=== PATIENT | male | born 1980 | race Caucasian/White ===

== ENCOUNTER → 2018-11-22 15:42 | Outpatient (CLI) | payer BC, SELFPAY ==
--- NOTE | 2018-11-22 15:46 | MR_ITS ---
MR head/brain wo con Ordering Physician: Zandra Du MD Patient Age: 38 years: Male HISTORY: ITS.REASON: central vs peripheral etiology DISI on and off for 10 years gotten worse recently. Also sharp pains head sometimes come and go. Last up to 20 seconds. Pain symptoms past 4 months. TECHNIQUE: MRI the brain without contrast Noncontrast Multiplanar FLAIR, T1, T2 weighted images along with axial diffusion/ADC imaging performed on 1.5 T. Siemens, MRI. COMPARISON :No relevant studies FINDINGS the brain demonstrates normal anatomy. Normal cranial cervical junction and sella ventricles and basal cisterns appear normal and symmetric. No extra-axial collections Diffusion images reveal no recent infarct or ischemia. There are no extra-axial nor subdural collections or findings. Survey images through the [place] on today's study is unremarkable No white matter lesions on the sensitive FLAIR images in both the coronal and axial planes. The posterior fossa appears normal. CP angles are clear. Cranial nerve VII and VIII appears satisfactory as a past to the respective right and left IAC. Mastoid air cells are clear with no significant findings. . Orbits unremarkable. Frontal, sphenoid, ethmoid sinuses are clear. Right maxillary sinus clear. Scant less than 2 mm mucosal thickening floor right maxillary sinus. There is a dome shaped density measured 1.5 cm of the floor the anterior left maxillary sinus. Likely retention cyst Scalp and skull appear satisfactory. Dural venous sinuses unremarkable WNL There is mild early cervical spondylosis features developing at upper C-spine. ... IMPRESSION ...... normal MRI of the brain. No significant findings.. Normal anatomy. No white matter lesions. Regarding dizziness: CP angles, IACs, mastoids, posterior fossa unremarkable on this routine survey MRI brain
== END ==
PROVIDERS: Visit Provider Specialist
DX: R42 Dizziness and giddiness (principal); R51 Headache; Z86.79 Personal history of other diseases of the circulatory system
CPT/HCPCS: 70551

== ENCOUNTER 2018-11-22 16:54 | Outpatient (RCR) | payer BC, SELFPAY ==
--- NOTE | 2018-11-22 18:16 | HMH.PTOPEV ---
PT Outpatient Evaluation Rehab PT Outpatient Evaluation Start: 11/22/18 17:04 Freq: Status: Active Protocol: Document 11/22/18 17:05 KRISTENJOSHUA (Rec: 11/22/18 18:16 VIKI [id number]) Electronically Signed By Nilo Patel, SHY 11/22/18 17:05 Outpatient Therapy Subjective History Subjective History This is the intial Physical Therapy evaluation for Ethan Valdez. Pt is a 34 y/o male referred to PT due to c/o dizzyness and light headedness . Pt reports S&S began ~ 12 years ago. Pt reports he was diagnosed w/ A-fib and had heart ablation. Pt reports A- fib was controlled but he has continued to have c/o dizzyness. Pt reports ENT says no vertigo and was referred to Neurologist. Pt reports Driving makes his symprtoms act up, and sometimes heights. Chief Complaint Other Symptom Type Other Symptoms Relieved By Nothing Prior Functional Limitations None Current Functional Limitations Driving,Recreation Activity Symptom Description Intermittent Level of pain today (0-10) 0 Pain scale - at its best (0-10) 0 Pain scale - at its worst (0-10) 0 Balance Eval Subjective Hx of Complaint Comment see above Chief Complaint vertigo No Did you feel dizzy, unsteady or faint? Yes Activity at onset unknown Prior Functional Limitations Prior Functional [place] complete independence Current Functional Limitations Comment driving Hx of Falls Hx Falls No Gait/Posture Asssessment General Gait Observation No Deviations/Normal Assistive Devices None / NA Level of Transfer Assist Independent Hip Observation in Gait Swing No Deviation Hip Observation in Gait Stance No Deviation Ankle/Foot Observation in Gait Swing No Deviation Ankle/Foot Observation in Gait Stance No Deviation Hip Posture Standing Position (L) Neutral,(R) Neutral Body Alignment Posture Relaxed Nystagmus Nystagmus Presence None Timed Up and Go Test 1. Is the Timed Up and Go test result > no or = to 12 seconds? 3. Is the Timed Up and Go Test result < yes 12 seconds? Oculomotor Gaze Oculomotor Gaze Nml: Vergence Smooth Pursuit
== END 2018-11-22 16:58 | disposition home or self-care (01) ==
LOC: PT 16:54
PROVIDERS: Visit Provider Specialist
DX: R42 Dizziness and giddiness (principal); R51 Headache; Z86.79 Personal history of other diseases of the circulatory system
CPT/HCPCS: 97110; 97163

== ENCOUNTER → 2018-12-09 20:28 | Outpatient (CLI) | payer BC, SELFPAY | PROVIDERS: Visit Provider Specialist | DX: G47.30 Sleep apnea, unspecified (principal); R40.0 Somnolence; R06.83 Snoring; R51 Headache; R42 Dizziness and giddiness; Z86.79 Personal history of other diseases of the circulatory system | CPT/HCPCS: 95810 ==

== ENCOUNTER → 2019-08-19 16:40 | Outpatient (CLI) | payer BC, SELFPAY ==
--- NOTE | 2019-08-19 16:44 | XR_ITS ---
PROCEDURE: XR LUMBAR SPINE 6V W BENDING CLINICAL INDICATION: low back pain for several years COMPARISON: No exams were available for comparison FINDINGS: There is normal curvature and alignment. All lumbar vertebrae appear intact and disc spaces are well maintained throughout. There is no pars defect. Flexion and extension views show normal range of motion. There are mild hypertrophic facet changes at the L3-4, L4-5 and L5-S1 levels. The SI joints are normal. IMPRESSION: Mild hypertrophic facet changes lower lumbar spine otherwise essentially unremarkable study Dictated by: Dr. Keith Mireles MD 08/20/2019 11:[address] Keith Mireles MD in [place] 08/20/2019 11:15
== END ==
PROVIDERS: PCP Nurse Practitioner Family; Visit Provider Nurse Practitioner Family
DX: M54.9 Dorsalgia, unspecified (principal)
CPT/HCPCS: 72114

== ENCOUNTER → 2019-09-01 15:22 | Outpatient (CLI) | payer BC, SELFPAY ==
--- NOTE | 2019-09-01 15:23 | MR_ITS ---
PROCEDURE: MR LUMBAR SPINE WO CON CLINICAL INDICATION: low back pain Low back pain with bilateral hip pain XR LUMBAR SPINE 6V W BENDING from 08/19/2019 TECHNIQUE: Standard multiplanar multiecho sequences are performed without contrast. 3-D MIP and myelographic images are also rendered and reviewed FINDINGS: There is normal alignment. The spinal cord ends at the L1 level. L1-L2 L2-L3 and L3-L4 have an unremarkable appearance. L4-5: Minimal bulging disc slightly eccentric toward the right. There is some mild facet ligamentum hypertrophy with mild right lateral recess narrowing. L5-S1: Minimal bulging disc IMPRESSION: 1. Minimal bulging disc L4-5 and L5-S1 with mild right lateral recess narrowing at L4-5 due to the bulging disc which is slightly eccentric toward the right 2. No canal stenosis or extruded herniated disc Dictated by: Srikanth Navarrete MD 09/02/2019 18:40 Electronically signed by Srikanth Navarrete MD in [place] 09/02/2019 18:40
== END ==
PROVIDERS: PCP Nurse Practitioner Family; Visit Provider Nurse Practitioner Family
DX: M54.9 Dorsalgia, unspecified (principal)
CPT/HCPCS: 72148; 76376

== ENCOUNTER 2019-09-27 14:30 | Outpatient (RCR) | payer BC, SELFPAY ==
--- NOTE | 2019-09-12 15:29 | HMH.PTOPEV ---
PT Outpatient Evaluation Rehab PT Outpatient Evaluation Start: 09/12/19 14:25 Freq: Status: Active Protocol: Document 09/12/19 15:18 OTTO (Rec: 09/12/19 15:29 PHORNE [id number]) Electronically Signed By Link Osorio, PT 09/12/19 15:18 Outpatient Therapy Subjective History Subjective History Pt is 39 yowm who presents with long hx of LBP worse x ~ 1 yr. He reports constant dull ache with intermittent sharp pains in the low back, no c/o radicular symptoms in the legs . He reports pain is worse with forward bending and lifting. MRI shows L4-5 and L5 -S1 lumbar disc bulges. Chief Complaint Pain Symptom Type Ache,Sharp Symptoms Relieved By Rest/Positioning Symptoms Aggravated By Lifting Prior Functional Limitations None Current Functional Limitations Lifting Symptom Description Constant but Variable Level of pain today (0-10) 3 Pain scale - at its worst (0-10) 8 Lumbopelvic Eval Posture Thoracic Spine Posture Standing Position Neutral Lumbar Spine Posture Standing Position Neutral Range of Motion Lumbar Spine Active Flexion Range of 0-65 Motion (degrees) Lumbar Spine Active Extension Range of 0-25 Motion (degrees) Left Lumbar Spine Lateral Flexion Active 0-15 Range of Motion (degrees) Right Lumbar Spine Lateral Flexion 0-20 Active Range of Motion (degrees) Manual Muscle Test Bilateral Knee Extension Strength Grade 5 Normal Knee Flexion Strength Grade 5 Normal Hip Flexion Strength Grade 5 Normal Hip Abduction Strength Grade 5 Normal Hip Adduction Strength Grade 5 Normal Hip External Rotation Strength Grade 5 Normal Hip Internal Rotation Strength Grade 5 Normal Hip Extension Strength Grade 5 Normal Gluteus [place] Strength Grade 5 Normal Extensor Hallucis Longus Strength Grade 5 Normal Ankle Dorsiflexion Strength Grade 5 Normal Gastronemius/Soleus Strength Grade 5 Normal DTR Rt Patellar 2+ Lt Patellar 2+ Rt Gastroc/Soleus 2+ Lt Gastroc/Soleus 2+ Special Tests Forward Bending Test- Standing Negative Left,Negative Right Hip Scouring (Quadrant) Test Negative Left,Negative Right Hip Bhavesh (MAX) Test Negative Left,Negative Right Sciatic Nerve Tension Test Negative Left,Negative Right Unilateral Straight Leg Raise (Lasegue) Negative Left,Negative Right Test Lumbar Long [place] Distraction Test/Manual Positive Traction Outpatient Therapy Assessme
== END 2019-09-27 15:00 | disposition home or self-care (01) ==
LOC: PT 14:30
PROVIDERS: PCP Nurse Practitioner Family; Visit Provider Nurse Practitioner Family
DX: M51.26 Other intervertebral disc displacement, lumbar region (principal)
CPT/HCPCS: 97010; 97012; 97014; 97035; 97110; 97140; 97163; G0283

== ENCOUNTER → 2022-11-20 23:23 | Outpatient (CLI) | payer BC, SELFPAY ==
[2022-11-20 17:53] LABS: Basophils % 0.5 % (0.1-2.0); Eosinophils # 0.1 K/mm3 (0.0-0.4); Eosinophils % 1.8 % (0.1-12.0); Hematocrit 43.7 % (42.0-52.0); Hemoglobin 15.6 g/dL (14.1-18.0); Lymphocytes # 2.4 K/mm3 (0.7-4.5); Lymphocytes % 39.8 % (10-50); Mean Corpuscular HGB Conc 35.6 g/dL (31.8-35.4); Mean Corpuscular Hemoglobin 32.1 pg (27.0-31.2); Mean Corpuscular Volume 90.2 fl (80-94); Mean Platelet Volume 7.6 fl (7.4-10.4); Monocytes # 0.2 K/mm3 (0.1-1.0); Monocytes % 3.8 % (1.7-9.3); Neutrophils # 3.2 K/mm3 (1.8-7.8); Neutrophils % 54.2 % (37.0-80.0); Platelet Count 204 K/mm3 (142-424); Red Blood Count 4.84 M/mm3 (4.60-6.20); Red Cell Distribution Width 13.1 % (11.5-17.5); White Blood Count 5.9 K/mm3 (4.8-10.8)
[2022-11-20 18:18] LABS: Alanine Aminotransferase 60 U/L (12-78); Albumin Level 4.9 g/dl (3.5-5.0); Albumin/Globulin Ratio 1.6 (1.1-1.8); Alkaline Phosphatase 71 U/L (38-126); Aspartate Amino Transferase 42 U/L (17-59); Bilirubin,Total 0.9 mg/dl (0.2-1.3); Blood Urea Nitrogen 17 mg/dl (9-20); Calcium 9.2 mg/dl (8.4-10.2); Carbon Dioxide 25 mmol/L (22.0-30.0); Chloride 103 mmol/L (98-107); Chol/HDL Ratio 7.1 (1-3.5); Cholesterol 234 mg/dl (140-200); Estimated Glomerular Filt Rate 92 ml/min (>60); GFR (African American) 111 ML/MIN (>60); Glucose 102 mg/dl (74-100); HDL Cholesterol 33 mg/dl (40-60); Sodium 140 mmol/L (136-145); Total Protein,Serum 7.9 g/dl (6.3-8.2)
[2022-11-20 18:28] LABS: Triglycerides 815 mg/dl (30-150)
[2022-11-24 12:27] LABS: Free Thyroxine Index 1.7 ug/dL (5.93-13.13); T4 (Thyroxine) 5.2 ug/dl (5.53-11.0); Triiodothryronine (T3) Uptake 32 % (23.5-40.5)
[2022-11-24 12:40] LABS: Thyroid Stimulating Hormone 1.63 uIU/mL (0.465-4.68)
== END ==
PROVIDERS: PCP Nurse Practitioner Family; Visit Provider Nurse Practitioner Family
DX: I48.91 Unspecified atrial fibrillation (principal)
CPT/HCPCS: 80053; 80061; 84436; 84443; 84479; 85025

== ENCOUNTER → 2022-11-24 15:55 | Outpatient (CLI) | payer BC, SELFPAY ==
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
== END ==
PROVIDERS: PCP Nurse Practitioner Family; Visit Provider Nurse Practitioner Family
DX: M79.645 Pain in left finger(s) (principal); S69.92XA Unspecified injury of left wrist, hand and finger(s), initial encounter
CPT/HCPCS: 73140

== ENCOUNTER → 2022-12-12 14:14 | Outpatient (CLI) | payer BC, SELFPAY ==
--- NOTE | 2022-12-12 15:15 | CA_ITS ---
APPROVED REPORT Exam: Exercise Treadmill Technologist: Lynn Mcmanus, Ht: 5 ft 9 in Wt: 225 lbs BSA: 2.17 m2 HR: 87 bpm BP: 141/90 mmHg Medical History Medications: Omeprazole,,,,, Flecainide,,,,, Tricor,,,,, Sertraline,,,,, Stress Test Details Test: Cipriano HR Resting HR: 83 bpm Max Heart Rate (APMHR): 177.077223 bpm Max HR Achieved: 160 bpm Target HR (85% APMHR): 150.822291 bpm % of APMHR: 90.40 Recovery HR: 95 bpm BP Resting BP: 143/100 mmHg Max BP: 200/90 mmHg Recovery BP: 149.0/93.0 mmHg ECG Resting ECG: SR Clinical Exercise duration: 09:37 min Highest Stage Achieved: IV Exercise capacity: 10.1 METs Stress ECG Conclusion Max HR: 160 % of PM: 90 Max BP: 200/90 METs: 10.1 Test stopped due to: SOA, Fatigue Symptoms: SOA, fatigue Arrhythmias/Ectopy: None ST-T Changes: None Conclusion: No ischemic changes Test Summary REST . . . . . . . Sitting REST . . . . . . . Standing REST 03:46 0.0 0.0 83 . 143/100 . . Stage 1 01:00 10.0 1.7 98 . . . . Stage 1 02:00 10.0 1.7 106 . . . . Stage 1 03:00 10.0 1.7 105 . 160/ 96 . . Stage 2 01:00 12.0 2.5 113 . . . . Stage 2 02:00 12.0 2.5 118 . . . . Stage 2 03:00 12.0 2.5 120 . 160/ 90 . . Stage 3 01:00 14.0 3.4 131 . . . . Stage 3 02:00 14.0 3.4 141 . 164/ 98 . . Stage 3 03:00 14.0 3.4 146 . 164/ 98 . . Stage 4 00:37 16.0 4.2 157 . . . Stop exercise at 09:37 RECOVERY 01:00 0.0 0.0 140 . . . . RECOVERY 02:00 0.0 0.0 116 . 200/ 90 . . RECOVERY 03:00 0.0 0.0 101 . 197/ 99 . . RECOVERY 04:00 0.0 0.0 97 . 167/ 93 . . RECOVERY 05:00 0.0 0.0 95 . 167/ 93 . . RECOVERY 06:00 0.0 0.0 92 . 159/ 95 . . RECOVERY 06:52 0.0 0.0 96 . 149/ 93 . . Electronically signed by : Campos Hanson MD 12/15/2022 08:43:20
== END ==
PROVIDERS: PCP Nurse Practitioner Family; Visit Provider Physician Assistant
DX: I48.0 Paroxysmal atrial fibrillation (principal); E78.1 Pure hyperglyceridemia
CPT/HCPCS: 93017; 93306

== ENCOUNTER → 2022-12-25 07:43 | Outpatient (CLI) | payer BC, SELFPAY ==
[2022-12-25 08:13] VITALS: BMI 31.5
[2022-12-25 08:15] VITALS: BP 132/87; PULSE 69; RESP 18; TEMP 36.2; O2SAT 98
[2022-12-25 08:51] LABS: Chloride 97 mmol/L (98-107); Potassium 3.8 mmoL/L (3.5-5.1); Sodium 138 mmol/L (136-145)
[2022-12-25 08:54] LABS: Blood Urea Nitrogen 16 mg/dl (9-20); Creatinine Clearance Estimated 134 mL/min (50-200); Estimated Glomerular Filt Rate 82 ml/min (>60); GFR (African American) 99 ML/MIN (>60)
[2022-12-25 08:55] LABS: Anion Gap 15.8 mEq/L (5-15); Calcium 8.5 mg/dl (8.4-10.2); Carbon Dioxide 29 mmol/L (22.0-30.0); Glucose 115 mg/dl (74-100)
[2022-12-25 09:04] VITALS: PULSE 57; RESP 18
--- NOTE | 2022-12-25 09:04 | PC.NURSE ---
Pt resting with eyes closed. BUN, Creat normal, HR 58. Radiology notified pt is ready for CTA coronary.
[2022-12-25 09:11] VITALS: BP 139/87; PULSE 62; RESP 18
[2022-12-25 09:24] VITALS: BP 114/63; PULSE 59; RESP 18; O2SAT 100
--- NOTE | 2022-12-25 09:24 | PC.NURSE ---
Addendum entered by Dorys Castillo RN 12/25/22 09:35: Time correction 0911 instead of [address] room. Original Note: Arrived to CT room with radiology staff.
[2022-12-25 09:25] VITALS: BP 134/73; PULSE 58
--- NOTE | 2022-12-25 09:25 | PC.NURSE ---
Scan complete, VSS, no C/O. Pt dressed and walked to lobby.
== END ==
PROVIDERS: PCP Nurse Practitioner Family; Visit Provider Physician Assistant
DX: I48.0 Paroxysmal atrial fibrillation (principal); I50.1 Left ventricular failure, unspecified; E78.1 Pure hyperglyceridemia
CPT/HCPCS: 75574; 80048; Q9967

== ENCOUNTER → 2023-07-03 12:41 | Outpatient (CLI) | payer BC, SELFPAY ==
--- NOTE | 2023-07-03 12:41 | CA_ITS ---
APPROVED REPORT EXAM: Limited 2D Echocardiogram Director Of Purchasing: Danielle Sands, RCS, RVS Ht: 5 ft 9 in Wt: 235lbs BSA: 2.21 BP: 119/80 mmHg Indications: Reduced EF, fatigue, shortness of breath, status post ablation, EUN 2D Dimensions IVSd 0.97 cm LVEF (Visual) 50.90 % PWd 1.15 cm LVDd 5.56 cm LVDs 4.10 cm M-Mode Dimensions RVDd 1.65 cm (0.9-2.6) LA Diam 3.32 cm (1.9-4.0) LVDd 5.21 cm (3.5-5.7) LVDs 3.90 cm (3.5-5.7) IVSd 0.95 cm (0.6-1.1) PWd 1.06 cm (0.6-1.1) EF (Teich) 49.30% EPSs 0.11 cm FS 25.10% EDV (Teich) 130.10 mL ESV (Teich) 65.90 mL Other Information Study Quality: Fair Conclusion This is a limited TTE to evaluate for LVEF. Limited windows were obtained. There is normal LV size and global systolic function. There is normal LV wall thickness. No regional wall motion abnormalities are noted. LVEF is 55%. The right ventricle appears grossly normal in size and systolic function. No pericardial effusion is visualized. Compared to prior study from 12/2022, the LVEF is now improved. The previously visualized wall motion abnormalities are no longer seen. Electronically signed by : Maggie Barrientos MD 07/05/2023 20:39:29
== END ==
LOC: RT 12:41
PROVIDERS: PCP Nurse Practitioner Family; Visit Provider Nurse Practitioner Family
DX: I48.0 Paroxysmal atrial fibrillation (principal); I51.9 Heart disease, unspecified; E78.1 Pure hyperglyceridemia; G47.33 Obstructive sleep apnea (adult) (pediatric)
CPT/HCPCS: 93308

== ENCOUNTER 2024-12-06 15:37 | Outpatient (CLI) | payer BC, SELFPAY ==
[2024-12-06 16:52] LABS: Basophils % 0.5 % (0.1-2.0); Eosinophils # 0.1 Kmm3 (0.0-0.4); Eosinophils % 1.9 % (0.1-12.0); Hematocrit 39.2 % (42.0-52.0); Hemoglobin 14.1 g/dL (14.1-18.0); Immature Granulocytes # 0.02 10^3uL; Immature Granulocytes % 0.3 %; Lymphocytes % 33.8 % (10-50); Mean Corpuscular Volume 88.9 fl (80-94); Mean Platelet Volume 9.3 fl (7.4-10.4); Monocytes # 0.4 K/mm3 (0.1-1.0); Monocytes % 6.1 % (1.7-9.3); Neutrophils # 3.4 K/mm3 (1.8-7.8); Neutrophils % 57.4 % (37.0-80.0); Nucleated Red Blood Cells # 0 10^3/uL; Nucleated Red Blood Cells % 0 %; Platelet Count 178 K/mm3 (142-424); Red Blood Count 4.41 M/mm3 (4.60-6.20); Red Cell Distribution Width 11.9 % (11.5-17.5); White Blood Count 5.9 K/mm3 (4.8-10.8)
[2024-12-06 17:30] LABS: Alanine Aminotransferase 107 U/L (12-78); Albumin Level 4.7 g/dl (3.5-5.0); Alkaline Phosphatase 57 U/L (38-126); Anion Gap 9.1 mEq/L (5-15); Aspartate Amino Transferase 57 U/L (17-59); Bilirubin,Direct 0.2 mg/dl (0.0-0.4); Bilirubin,Indirect 0.7 mg/dL (0.0-0.9); Bilirubin,Total 0.9 mg/dl (0.2-1.3); Bilirubin,Unconjugated 0.7 mg/dL (0.0-1.1); Blood Urea Nitrogen 14 mg/dl (9-20); Calcium 9.4 mg/dl (8.4-10.2); Carbon Dioxide 26 mmol/L (22.0-30.0); Chloride 107 mmol/L (98-107); Chol/HDL Ratio 7.8 (1-3.5); Cholesterol 211 mg/dl (140-200); Estimated Glomerular Filt Rate 91 ml/min (>60); GFR (African American) 110 ML/MIN (>60); Glucose 126 mg/dl (74-100); HDL Cholesterol 27 mg/dl (40-60); Magnesium 2.1 mg/dl (1.6-2.3); Potassium 4.1 mmoL/L (3.5-5.1); Sodium 138 mmol/L (136-145); Total Protein,Serum 7.3 g/dl (6.3-8.2)
[2024-12-06 17:40] LABS: Direct LDL Cholesterol 47.29 mg/dL (100-129)
[2024-12-06 17:43] LABS: Triglycerides 836 mg/dl (30-150)
[2024-12-06 18:01] LABS: Thyroid Stimulating Hormone 2.09 uIU/mL (0.465-4.68)
== END 2024-12-06 23:59 | disposition home or self-care (01) ==
LOC: LAB 15:38
PROVIDERS: PCP Nurse Practitioner Family; Visit Provider Nurse Practitioner
DX: I48.0 Paroxysmal atrial fibrillation (principal); R06.09 Other forms of dyspnea; R00.2 Palpitations; R07.89 Other chest pain; G47.33 Obstructive sleep apnea (adult) (pediatric); I51.9 Heart disease, unspecified; E78.1 Pure hyperglyceridemia
CPT/HCPCS: 36415; 80048; 80061; 80076; 83735; 84439; 84443; 85025; 93270

== ENCOUNTER 2024-12-14 11:46 | Outpatient (CLI) | payer BC, SELFPAY ==
--- NOTE | 2024-12-14 | CA_ITS ---
APPROVED REPORT Exam: Pharmacologic Technologist: Lynn Mcmanus Ht: 5 ft 9 in Wt: 239 lbs BSA: 2.23 m2 Medical History Medications: Bisoprolol fumarate, omeprazole, sertraline Stress Test Details Test: Exercise stress converted to pharmacologic stress due to failure to obtain a diagnostic stress test. Reason for pharmacologic stress test: changed from exercise stress test due to inability to reach target heart rate. HR Resting HR: 76 bpm Max Heart Rate (APMHR): 175 bpm Max HR Achieved: 91 bpm Target HR (85% APMHR): 149 bpm % of APMHR: 52 Recovery HR: 85 bpm BP Resting BP: 121.0/80.0 mmHg Max BP: 138.0/81.0 mmHg Recovery BP: 115.0/79.0 mmHg ECG Resting ECG: SR. No ischemia or ectopy Stress ECG Conclusion Symptoms: None. Arrhythmias/Ectopy: Lexiscan. ST-T Changes: -was converted from GXT due to severe back pain. 2-disc hernation per PT. Electronically signed by : Maggie Barrientos MD 12/14/2024 23:57:28
--- NOTE | 2024-12-14 12:00 | NM_ITS ---
APPROVED REPORT Exam: Nuclear Stress Test Indication: chest pain Patient Location: Outpatient Stress Tech: Lynn Ryan [place] Tech:LIOR Sampson, RT (R)(N) Ht: 5 ft 10 in Wt: 238 lbs HR: 76 bpm BP: 121/80 mmHg BSA: 2.25 m2 TID: 1.04 BMI: 34.1 History: chest pain Procedure: Patient received 0.4 mg of intravenous Lexiscan, resting heart rate 76 bpm, resting blood pressure 121/80 mmHg, with Lexiscan maximum heart rate achieved was 93 bpm which is 85 % of the maximum predicted heart rate and blood pressure was 138/81 mmHg. With Lexiscan, patient denied any complaint of chest pain. Cardiac Stress and Resting SPECT Images: Cardiac Stress and Resting SPECT images were obtained using technetium 99m Myoview 31.5 mCi stress and 10.60 mCi at rest. Right imaging demonstrates significant diaphragmatic overlap with the cardiac borders. This may affect the diagnostic interpretation of the study findings. Resting and stress imaging in supine positions demonstrate a small sized, mild, tapered fixed perfusion defect in the basal inferior LV wall. This is no longer visualized with prone stress imaging. Findings are suggestive of diaphragmatic attenuation. Gated image demonstrates normal global and regional LV systolic function. LVEF is calculated at 54%. Conclusion: Diaphragmatic attenuation is present. No evidence of fixed or reversible perfusion defect. Gated image demonstrates normal global and regional LV systolic function. LVEF is calculated at 54%. Electronically signed by : Maggie Barrientos MD 12/14/2024 23:53:07
[2024-12-14] MEDS: ISOTOPE MYOVIEW (PER STUDY) 1 DOSE IV (13:59)
[2024-12-14] MEDS: REGADENOSON 0.4MG/5ML SYRINGE 0.4 MG IV (13:59)
[2024-12-14] MEDS: SODIUM CHLORIDE 0.9% 10ML SYR (RAD ONLY) 10 ML IV ×2 (13:59)
== END 2024-12-14 23:59 | disposition home or self-care (01) ==
LOC: RAD 11:47
PROVIDERS: PCP Nurse Practitioner Family; Visit Provider Nurse Practitioner
DX: R07.9 Chest pain, unspecified (principal)
CPT/HCPCS: 78452; 93017; 93018; A9502; J2785

== ENCOUNTER 2024-12-21 12:46 | Outpatient (CLI) | payer BC, SELFPAY ==
--- NOTE | 2024-12-21 | CA_ITS ---
APPROVED REPORT EXAM: Comprehensive 2D, Doppler, and color-flow Echocardiogram Division Order Technician: Danielle Sands, OLEKSANDR, RVS Ht: 5 ft 9 in Wt: 239lbs BSA: 2.23 BP: 116/75 mmHg Indications: HX-ABLATION/PAF, SOP, CP, PALPITATIONS, EUN 2D Dimensions Left Atrium 3.25 cm LA Volume 33.20 mL LA Volume Index 14.447669 mL/m2 (M/F) 16-34 M-Mode Dimensions RVDd 2.26 cm (0.9-2.6) LA Diam 3.31 cm (1.9-4.0) LVDd 4.91 cm (3.5-5.7) LVDs 2.80 cm (3.5-5.7) IVSd 1.00 cm (0.6-1.1) PWd 0.93 cm (0.6-1.1) EF (Teich) 71.10% EPSs 0.48 cm FS 40.40% EDV (Teich) 102.40 mL ESV (Teich) 29.60 mL LV Diastology E Decel Time 260 (160-240 msec) E/A Ratio 1.91 MED A' 8.50 cm/s LAT A' 7.60 cm/s Aortic Valve LONNIE Index 1.05 cm2/m2 AoV Peak Jake. 112.0 (50-130 cm/s) AO Peak GR. 5.00 mmHg AO Mean GR. 2.50 (<5 mmHg) AO VTI 21.1 (18-25 cm) LONNIE (VTI) 2.39 (2.5-4.5 cm2) Mitral Valve MV A Velocity 37.0 (40-130 cm/s) E/A Ratio 1.91 Left Ventricle The left ventricle is normal size. The left ventricular systolic function is normal. The left ventricular ejection fraction is within the normal range. There is normal left ventricular wall thickness. There is normal LV segmental wall motion. The left ventricular diastolic function is normal. LVEF is 55%. Right Ventricle The right ventricle is normal size. The right ventricular systolic function is normal. Atria The left atrium size is normal. The right atrium size is normal. There is no Doppler evidence of interatrial shunt. Aortic Valve Aortic valve opens well. There is no aortic valvular stenosis. No aortic regurgitation is present. Mitral Valve The mitral valve is normal in structure. No evidence of mitral valve stenosis. Trace mitral regurgitation. Tricuspid Valve Tricuspid valve is grossly normal in structure and function. Trace tricuspid regurgitation. There is insufficient TR jet to estimate RVSP. Pulmonic Valve The pulmonary valve is normal in structure. Trace pulmonic regurgitation. Great Vessels The aortic root is normal in size. IVC is normal in size and collapses >50% with inspiration. Pericardium There is no pericardial effusion. Other Information Study Quality: Adequate Conclusion Normal biventricular systolic function. No significant valvular stenosis or regurgitation. Electronically signed by : Maggie Barrientos MD 12/29/2024 00:27:41
== END 2024-12-21 23:59 | disposition home or self-care (01) ==
LOC: RT 12:47
PROVIDERS: PCP Nurse Practitioner Family; Visit Provider Nurse Practitioner
DX: G47.33 Obstructive sleep apnea (adult) (pediatric) (principal); I48.0 Paroxysmal atrial fibrillation; E78.1 Pure hyperglyceridemia; I51.9 Heart disease, unspecified; Z98.890 Other specified postprocedural states
CPT/HCPCS: 93306